=== PATIENT | female | born 1930 | race Caucasian/White ===

== ENCOUNTER 2019-06-02 14:25 | Inpatient (IN) | payer MEDICARE ==
[~2019-06-02] VITALS: Ht 154.9 cm; Wt 42.6 kg
[2019-06-02] MEDS ORDERED: LIPITOR20 MG PO (14:52)
[2019-06-02] MEDS ORDERED: LASIX ORAL S10 MG/ML PO (14:53)
[2019-06-02] MEDS ORDERED: MULTI VITAMINS1 TAB PO (14:54)
[2019-06-02] MEDS ORDERED: SYNTHROID0.075 MG/T (14:54)
[2019-06-02] MEDS ORDERED: SYNTHROID0.05 MG/TA PO (15:32)
[2019-06-02 15:42] LABS: BASO % 0.3 % (0.0-2.0); GRAN # 9.5 (1.4-6.5); GRAN % 85.7 % (42.2-75.2); HEMOGLOBIN 10.5 g/dl (12.5-16.0); LYMPH # 0.7 (1.2-3.4); LYMPH % 6.6 % (20.0-51.0); MEAN CELL VOLUME 97 fl (80.0-100.0); MEAN CORPUSCULAR HEMOGLOBIN 31 pg (27.0-31.0); MEAN CORPUSCULAR HGB CONC 32 g/dl (33.0-37.0); MEAN PLATELET VOLUME 9.6 fl (7.4-10.4); MONO # 0.8 (0.1-0.6); MONO % 6.7 % (1.7-9.3); PLATELET COUNT 207 K/mm3 (130-400); RED BLOOD COUNT 3.44 M/mm3 (4.10-5.30); REDCELL DISTRIBUTION WIDTH-CV 14.3 % (11.5-14.5)
[2019-06-02 15:43] LABS: ALBUMIN 3.7 gm/dL (3.5-5.0); BILIRUBIN,TOTAL 0.6 mg/dL (0.0-1.0); CALCIUM 8.9 mg/dL (8.4-10.2); CREATININE, serum 0.65 (0.52-1.25); HEMATOCRIT 33.2 % (37.0-47.0); POTASSIUM 4.1 mmol/L (3.4-5.0); TOTAL PROTEIN 6.9 gm/dL (6.4-8.2)
[2019-06-02 15:46] LABS: PROTHROMBIN TIME 11.8 SECONDS (9.7-12.8)
[2019-06-02 15:49] LABS: PRE ALBUMIN 15.2 mg/dL (17.6-36.0)
[2019-06-02] MEDS ORDERED: LIPITOR 40MG TA40 MG PO (16:08)
[2019-06-02] MEDS ORDERED: ZESTRIL 20MG TA20 MG PO (16:09)
[2019-06-02 16:16] LABS: COLLECTION METHOD CATHETER
[2019-06-02 16:22] LABS: PH 6 (5-8); SQUAMOUS EPITHELIAL None Seen /hpf; URINE APPEARANCE Clear; URINE BACTERIA None Seen /hpf; URINE BILIRUBIN Negative (NEGATIVE); URINE BLOOD Negative (NEGATIVE); URINE COLOR Yellow; URINE GLUCOSE Negative (NEGATIVE); URINE KETONE Negative (NEGATIVE); URINE LEUKOCYTE ESTERASE Negative (NEGATIVE); URINE NITRATE Negative (NEGATIVE); URINE PROTEIN(semi-quant) 1+ (NEGATIVE)
--- NOTE | 2019-06-02 18:00 | NUR ---
Patient up from ER alert and oriented x 3. Assessment complete. Daughter at bedside. Hospitalist in to see patient. Obed pa and SCD to RLE. States pain to left hip 10/25, medications given per orders. Daughter and patient oriented to room. Initial and 5 page complete. Denies further needs at this time. Will report off to shift superintendent.
[2019-06-02 19:25] VITALS: BP 175/53; BP 18125/5; PULSE 67; PULSE 82; TEMP 97.3; TEMP 99.3
[2019-06-02 19:49] VITALS: BP 147/62; PULSE 67; TEMP 98.5
--- NOTE | 2019-06-02 20:00 | NUR ---
Report received. Assumed care for steward/stewardess night. Assessment complete. VS stable. A&Ox3-drowsy. Denies pain/shortness of breath/nausea. IV to Left wrist #22g-fluids infusing without difficulty. Jefferson cath draining clear yellow urine. DULCE MARIA/SCD to right lower extremity. Plan of care discussed for bedrest, NPO status and pain control. Verbalizes understanding. Call light in reach. Encouraged to call for needs. Will monitor.
[2019-06-03] VITALS (11 sets, daily range): BP systolic 127–157; BP diastolic 45–106; PULSE 58–70; TEMP 98–98.4
--- NOTE | 2019-06-03 04:00 | NUR ---
Rested off and on this shift. Pain adequately controlled with oral pain meds. Ambulated in hallway for approx 100feet this shift. Tolerated well. Denies nausea/shortness of breath. SCDs/Ally bilat. Has rotated ice off an on this shift. Call light in reach. WIll monitor.
--- NOTE | 2019-06-03 05:10 | NUR ---
C/O pain to left hip-rates 8/10 to left hip-described as constant ache/intermittent sharp. Morphine 2mg given IV per dr order due to NPO status. New consent form signed and on chart. Denies questions or concerns. Denies nasuea/shortness of breath. Call light in reach. Will monitor.
[2019-06-03 08:03] LABS: BASO % 0.4 % (0.0-2.0); EOS % 0.1 % (0-4.0); GRAN # 6.8 (1.4-6.5); GRAN % 75.2 % (42.2-75.2); LYMPH # 1.3 (1.2-3.4); LYMPH % 14.2 % (20.0-51.0); MEAN CELL VOLUME 97 fl (80.0-100.0); MEAN CORPUSCULAR HGB CONC 32 g/dl (33.0-37.0); MEAN PLATELET VOLUME 10.1 fl (7.4-10.4); MONO # 0.9 (0.1-0.6); MONO % 9.7 % (1.7-9.3); PLATELET COUNT 200 K/mm3 (130-400); RED BLOOD COUNT 2.99 M/mm3 (4.10-5.30); REDCELL DISTRIBUTION WIDTH-CV 14.4 % (11.5-14.5)
[2019-06-03 08:05] LABS: HEMOGLOBIN 9.2 g/dl (12.5-16.0); MEAN CORPUSCULAR HEMOGLOBIN 31 pg (27.0-31.0)
[2019-06-03 08:33] LABS: CALCIUM 8.3 mg/dL (8.4-10.2); CREATININE, serum 0.68 (0.52-1.25); POTASSIUM 3.7 mmol/L (3.4-5.0)
--- NOTE | 2019-06-03 10:19 | NUR ---
ARIANA met with the patient and her daughter, Nay Hernandez (ph#[phone]), to discuss discharge plan. The patient lives in [place] with her daughter (Nay) and son-in-law. She reports independence with ADLs and has two canes, two walkers, and a wheelchair available if needed. The patient's PCP is Dr. Solange Van and she receives her medications at the [facility] in [place]. She reports no difficulties obtaining her meds. The patient does not have advanced directives in EMR, but her her daughter states that she does have them completed and that they are somewhere at home. Nay states that she is that patient's DPOA-HC. The patient had a left hip fracture. ARIANA discussed post-acute rehab. The patient and her daughter were agreeable to this. ARIANA presented and explained the Patient Choice Form to the patient's daughter and provided her with Medicare.gov's list of nursing homes in the [place] area. The patient and her daughter chose 1) [facility] 2) [facility]. Patient Choice Form signed by the patient's daughter and she was provided a copy. ARIANA consulted Neelam with [facility]. ARIANA contacted and faxed a referral to Ibeth at [facility]. Ibeth, at [facility], reports that if able to accept, that they would not be able to take on the weekend. SW awaiting their screens and will continue to follow.
--- NOTE | 2019-06-03 15:00 | NUR ---
Patient up from OR, Alert and oriented. Post op VSS. Daughter at bedside. Denies further needs at this time.
--- NOTE | 2019-06-03 17:45 | NUR ---
Contacted Dr. Ji, patient having low urine out put and SBP in 100's. Fluid bolus started per orders, will continue to monitor BP.
--- NOTE | 2019-06-03 18:29 | NUR ---
Patient has done well since up from OR. Fluid bolus infusing per orders. Denies pain at this time. LUE in sling. Left hip sites with gauze. Denies further needs at this time. Will report off to shift manager.
--- NOTE | 2019-06-03 20:00 | NUR ---
Report received. Assumed care for salesperson household appliances. Assessment complete. A&Ox3-some confused conversation but re-orients on own. IV to right forearm pulled out-cath intact. Restarted in left [id number] attempt. Blood pressure taken manually as monitor reading high-VS are WNL. Jefferson cath driaining clear yellow urine. Output has increased since 1800 fluid bolus. Total of 125 out in two hours. Denies pain/nausea/shortness of breath. Dressings x3 to left hip-gauze/tegaderm. Top dressing totally saturated with bright red blood. Ortho migration agent notified with new orders to re-enforce with 4x4s/ABDs/foam tape. Completed and tolerated well. Will monitor drainage. Denies questions or concerns. Call light in reach. Bed alarm on. Will monitor.
[2019-06-04] VITALS (7 sets, daily range): BP systolic 134–167; BP diastolic 47–68; PULSE 61–69; TEMP 97.4–98.1
--- NOTE | 2019-06-04 02:00 | NUR ---
Repositioned at this time with pillow support. A&Ox3-very agitated. Urine output has been adequate since-but on the low side of 50mls/hr. Has continued to take sling off left arm stating she cant take having anything on that long and around her arm. States she feels as if she is restrained. Explained importance of sling but adamantly refuses to reapply. Complaining of nausea as well as pain. Dry heaved several times, has not tolerated any PO except some water. Refused any type of PO intake thus far. Zofran 4mg given IV per dr order followed by Morphine 2mg for pain to left hip/left shoulder. States left hip pain is mild compared to left shoulder pain. Rating pain 8/10 described as a constant ache/throb. Seems slightly agitated. States she does not want to be here any longer and is ready to go home. States she will not go to therapy as she had to do that before and would rather . After discussing she understands the importance but states she still will just leave today. States she is much more comfortable than she was and will try to rest-"lack of sleep has me in a bad way." Will continue to monitor.
--- NOTE | 2019-06-04 04:00 | NUR ---
Notified by PCT of elevated blood pressure. Taken manually by this nurse-148/68. Has been resting better since Morphine/zofran combo. Output has been 250mls in two hours. Has tolerated some clear liquids. Still refusing to wear sling or apply ice to hip. Repositioned with pillows. Denies nausea/pain/shortness of breath. SCDs/TEDs bilat. Call light in reach. Bed alram on. Will monitor.
--- NOTE | 2019-06-04 05:26 | NUR ---
Called to room stating she wants to leave and does not want to stay here any longer. Is A&Ox3-will have a brief moment of confusion but re-orients self and laughs at her mistake. Rating pain 4/10 to shoulder/hip-Hydrocodone one tab given per dr order. Denies nausea/shortness of breath. Discussed sling again and allowed this nurse to re-apply. Tolerated some clear liquids-refused PO for most of shift. Denies questions or concerns. Call light in reach/bed alarm on. Will monitor.
[2019-06-04 07:57] LABS: HEMATOCRIT 26.8 % (37.0-47.0); HEMOGLOBIN 8.4 g/dl (12.5-16.0)
--- NOTE | 2019-06-04 11:01 | NUR ---
Visited, listened and provided spiritual care for the patient.
--- NOTE | 2019-06-04 18:47 | NUR ---
Patient has done well throughout the day. Minimal needs. Pain medications given x2 today per orders. Encouraged patient to increase use of left upper extremity. Occassionally confused. States she cannot power saw operator her left arm, later will use arm. Has been up in recliner the majority of the day. Jefferson catheter discontiued today and patient voiding without difficulties. Has been up to comode with x1 assist. Denies further needs at this time. Daughter at bedside this afternoon. Reported off to material handler 1st shift.
[2019-06-05 04:58] VITALS: BP 130/49; PULSE 61; TEMP 97.9
--- NOTE | 2019-06-05 05:49 | NUR ---
PT MEDICATED TWICE FOR HIP PAIN. PT TRANSFERS POORLY. PT NOT VERY MOTIVATED TO MOVE. NEW ICE APPLIED.
[2019-06-05 07:08] LABS: BASO % 0.1 % (0.0-2.0); GRAN # 6.6 (1.4-6.5); GRAN % 80.2 % (42.2-75.2); LYMPH % 11.8 % (20.0-51.0); MEAN CELL VOLUME 97 fl (80.0-100.0); MEAN CORPUSCULAR HGB CONC 32 g/dl (33.0-37.0); MEAN PLATELET VOLUME 9.7 fl (7.4-10.4); MONO # 0.6 (0.1-0.6); MONO % 7.4 % (1.7-9.3); PLATELET COUNT 193 K/mm3 (130-400); RED BLOOD COUNT 2.61 M/mm3 (4.10-5.30); REDCELL DISTRIBUTION WIDTH-CV 14.6 % (11.5-14.5)
[2019-06-05 07:14] LABS: CALCIUM 8.5 mg/dL (8.4-10.2); CREATININE, serum 0.68 (0.52-1.25); POTASSIUM 3.6 mmol/L (3.4-5.0)
[2019-06-05 07:59] LABS: HEMATOCRIT 25.3 % (37.0-47.0); HEMOGLOBIN 8.1 g/dl (12.5-16.0); MEAN CORPUSCULAR HEMOGLOBIN 31 pg (27.0-31.0)
[2019-06-05 09:29] VITALS: BP 157/50; PULSE 66; TEMP 97.9
--- NOTE | 2019-06-05 10:18 | NUR ---
Patient resting in bed. She worked with therapy and did fairly well. She tolerated her breakfast. Reports not being a big eater. Ortho rounded. Left hip drg CDI. Complaints of L.shoudler pain. Teds & scds. Int. Will monitor.
[2019-06-05 11:21] VITALS: BP 166/72; PULSE 78; TEMP 98.2
[2019-06-05 15:54] VITALS: BP 155/49; PULSE 66; TEMP 98.8
--- NOTE | 2019-06-05 17:44 | NUR ---
Patient resting in bed. Ayan assisted her with a shower this afternoon. Her family also visited. Carol for pain managment. She continues to have more complaints of shoulder pain than hip pain, that is worse with movement. She has been continent of urine, using bedside commode with assist. Int. Teds off at this time after shower. Patient has tolerated meals. Alerternative meals offered. She is wanting to nap. Will monitor
[2019-06-05 21:06] VITALS: BP 125/49; PULSE 62; TEMP 98.2
[2019-06-06 04:49] VITALS: BP 125/42; PULSE 62; TEMP 98.8
--- NOTE | 2019-06-06 05:28 | NUR ---
Pain medication given per orders. Requires one assist to transfer to the commode for toileting. States significant pain to left hip. Dressing has minimal amount of drainage to site. Pain medication effective. Patient has slept well throughout the night. Denies any further needs. Will continue to monitor.
[2019-06-06 07:35] LABS: BASO % 0.2 % (0.0-2.0); CALCIUM 8.1 mg/dL (8.4-10.2); CREATININE, serum 0.72 (0.52-1.25); GRAN # 7.8 (1.4-6.5); GRAN % 83.7 % (42.2-75.2); LYMPH # 0.8 (1.2-3.4); LYMPH % 8.4 % (20.0-51.0); MEAN CELL VOLUME 97 fl (80.0-100.0); MEAN CORPUSCULAR HGB CONC 32 g/dl (33.0-37.0); MEAN PLATELET VOLUME 9.8 fl (7.4-10.4); MONO # 0.7 (0.1-0.6); MONO % 7.2 % (1.7-9.3); PLATELET COUNT 191 K/mm3 (130-400); POTASSIUM 3.7 mmol/L (3.4-5.0); RED BLOOD COUNT 2.37 M/mm3 (4.10-5.30); REDCELL DISTRIBUTION WIDTH-CV 14.7 % (11.5-14.5)
[2019-06-06 07:37] LABS: HEMATOCRIT 22.9 % (37.0-47.0); HEMOGLOBIN 7.3 g/dl (12.5-16.0); MEAN CORPUSCULAR HEMOGLOBIN 31 pg (27.0-31.0)
--- NOTE | 2019-06-06 08:00 | NUR ---
Patient in bed resting. Alert and oriented x 3. Assessment complete. Aquacell dressing to left hip with minimal drainage present. Tedhose and SCDs to BLE. Assisted patient to bedside comode x1 assist. Denies further needs at this time.
[2019-06-06 08:16] VITALS: BP 136/42; PULSE 71; TEMP 98.6
[2019-06-06 11:32] VITALS: BP 145/45; PULSE 74; TEMP 99.4
--- NOTE | 2019-06-06 16:11 | NUR ---
Out And Out Cigar Maker Hand was notified by BERTHA Rodríguez that patient is cleared for discharge. ARIANA contacted Jana, [facility] Director and spoke with Hospitalist who advised [facility] does not have bed availability at this time. ARIANA contacted Ibeth at [facility] who advised she would have to submit for prior authorization as patient has [employer]. Later in the afternoon, Ibeth contacted ARIANA to inform her that [facility] is not an in network provider. ARIANA contacted Nay (ph#[phone]), patient's daughter to provide update. Nay expressed frustration and gave ARIANA permission to send referrals to the three SNFs in [place]. ARIANA contacted [facility], [email or web address], and [facility] then faxed [facility]errals. ARIANA advised each facility that patient has [employer]. SW provided update to patient. Patient's daughter also inquired about pricing for a walker with a seat and brakes. ARIANA contacted [facility] then provided Nay with pricing. ARIANA advised Nay that she could purchase item at her preferred DME provider. SW to continue to follow.
[2019-06-06 16:25] VITALS: BP 165/63; PULSE 82; TEMP 99
--- NOTE | 2019-06-06 18:30 | NUR ---
Patient has done well throughout the day, minimal needs. States pain is better today. Has been up ambulatig to restroom with 1 assist and walker, steady gait. Daughter at bedside this afternoon. Denies further needs at this time. Will report off to warp tier.
[2019-06-06 20:25] VITALS: BP 123/93; PULSE 78; TEMP 100
[2019-06-06 23:31] VITALS: BP 159/54; PULSE 73; TEMP 99.8
[2019-06-07 04:10] VITALS: BP 136/50; PULSE 66; TEMP 99.1
--- NOTE | 2019-06-07 06:32 | NUR ---
Patient has rested well throughout the night. PRN pain medication given at HS for pain to left hip. Patient calls to transfer to toilet. Denies any further needs. Will continue to monitor.
--- NOTE | 2019-06-07 08:00 | NUR ---
Patient in bed resting. alert and oriented x 3. Assessment complete. Patient has been up ambulating to restroom with walker and stand by assist. Denies pain at this time. Denies further needs at this time. Will continue to monitior.
[2019-06-07 08:11] LABS: BASO % 0.2 % (0.0-2.0); EOS % 0.1 % (0-4.0); LYMPH # 1.1 (1.2-3.4); LYMPH % 12.5 % (20.0-51.0); MEAN CELL VOLUME 97 fl (80.0-100.0); MEAN CORPUSCULAR HGB CONC 32 g/dl (33.0-37.0); MEAN PLATELET VOLUME 9.7 fl (7.4-10.4); MONO # 0.6 (0.1-0.6); MONO % 6.5 % (1.7-9.3); PLATELET COUNT 211 K/mm3 (130-400); RED BLOOD COUNT 2.66 M/mm3 (4.10-5.30); REDCELL DISTRIBUTION WIDTH-CV 14.7 % (11.5-14.5)
[2019-06-07 08:13] VITALS: BP 151/55; PULSE 65; TEMP 98.5
[2019-06-07 08:15] LABS: HEMATOCRIT 25.9 % (37.0-47.0); HEMOGLOBIN 8.2 g/dl (12.5-16.0); MEAN CORPUSCULAR HEMOGLOBIN 31 pg (27.0-31.0)
[2019-06-07 08:18] LABS: CALCIUM 8.6 mg/dL (8.4-10.2); CREATININE, serum 0.65 (0.52-1.25); POTASSIUM 3.3 mmol/L (3.4-5.0)
--- NOTE | 2019-06-07 11:23 | NUR ---
Railroad Car Truck Builder was contacted by Tracy at [email or web address] who advised patient's daughter, Nay contacted them about placement. SW faxed referral and copy of patient's [facility] care to [facility]. Tracy from [facility] asked for ICD-10 codes for patient fractures. ARIANA collaborated with GINA Meyer then provided the codes to Tracy. ARIANA received a message from the previous evening that advised Winnie from [facility] visited with patient. SW was contacted by Sybil at [facility] who advised she had a reference number from [facility] but was waiting on final authorization. Sybil advised she spoke with Nay about this. ARIANA spoke with Jana [facility] Director who advised she will start authorization process as a bed may be available tomorrow. ARIANA contacted [facility] who states [facility] is still patient's first preference. ARIANA contacted BERTHA Rodríguez to provide update. ARIANA to continue to follow.
--- NOTE | 2019-06-07 11:33 | NUR ---
Coat Cutter contacted GINA Bedoya at [facility] and left a message. (ph#[phone]).
[2019-06-07 12:18] VITALS: BP 139/41; PULSE 69; TEMP 98.3
[2019-06-07] MEDS ORDERED: ASPIRIN 32325 MG/TA1 PO (14:03)
[2019-06-07] MEDS ORDERED: NORCO 325 MG-51 TAB PO (14:04)
[2019-06-07] MEDS ORDERED: TYLENOL 325MG325 MG PO (14:04)
[2019-06-07] MEDS ORDERED: OSCAL 500 TAB500 MG PO (14:05)
[2019-06-07] MEDS ORDERED: VITAMIN C500 MG PO (14:07)
--- NOTE | 2019-06-07 14:20 | NUR ---
Patient doing well this AM. Has been up ambulating to restroom with walker. Aquacell to left hip with minimal drainage. Pedal pulses intact. SCDs and Obed hose to BLE. Denies further needs at this time.
[2019-06-07 14:41] VITALS: BP 139/41; PULSE 69; TEMP 98.3
--- NOTE | 2019-06-07 15:26 | NUR ---
The patient to to discharge this day, 06/07 to [facility] for a fdc stay. The patient will be transported at 1530. ARIANA informed the team and the patient's family, all were in agreeance. ARIANA faxed discharge orders to [facility]. ARIANA informed and thanked all other referrals.ARIANA presented the IM form to the patient and the patient's grandson and grandson's . The patient and family understood. Patient had grandson sign the form. A copy was provided to the family and original was placed in the chart. There are no additional needs at this time.
--- NOTE | 2019-06-07 15:48 | NUR ---
Patient transfering to [facility]. Grand son at bedside. Assisted patient to wheelchair. Deneis pain or further needs at this time.
== END 2019-06-07 15:52 | DRG 480 ==
LOC: COL.ER 14:25 → SURG 15:12 → EDBEDREQ 16:51 → SURG 06-07 15:52
PROVIDERS: Emergency Medicine; Family Medicine; Nurse Practitioner Family; Physician Assistant; ADMIT Orthopaedic Surgery
PROC: BW1JYZZ Fluoroscopy of Upper Extremity using Other Contrast (ICD-10-PCS; 2019-06-03)
PROC: 0QS704Z Reposition Left Upper Femur with Internal Fixation Device, Open Approach (ICD-10-PCS; principal; 2019-06-03 12:00)
PROC: 0QS706Z Reposition Left Upper Femur with Intramedullary Internal Fixation Device, Open Approach (ICD-10-PCS; 2019-06-03 12:00)
DX: S72.142A Displaced intertrochanteric fracture of left femur, initial encounter for closed fracture (principal); J96.01 Acute respiratory failure with hypoxia; S42.202A Unspecified fracture of upper end of left humerus, initial encounter for closed fracture; I13.0 Hypertensive heart and chronic kidney disease with heart failure and stage 1 through stage 4 chronic kidney disease, or unspecified chronic kidney disease; E44.0 Moderate protein-calorie malnutrition; Z68.1 Body mass index [BMI] 19.9 or less, adult; E89.0 Postprocedural hypothyroidism; I50.9 Heart failure, unspecified; K21.9 Gastro-esophageal reflux disease without esophagitis; I08.0 Rheumatic disorders of both mitral and aortic valves; E87.6 Hypokalemia; E78.5 Hyperlipidemia, unspecified; N18.9 Chronic kidney disease, unspecified; H35.30 Unspecified macular degeneration; F17.210 Nicotine dependence, cigarettes, uncomplicated; W18.30XA Fall on same level, unspecified, initial encounter; Y92.008 Other place in unspecified non-institutional (private) residence as the place of occurrence of the external cause; D64.9 Anemia, unspecified; D72.829 Elevated white blood cell count, unspecified; Z90.710 Acquired absence of both cervix and uterus
CPT/HCPCS: 99222-AI; 99232-AI; 99239; A9284; C1713; J0360; J0690; J1100; J2250; J2270; J2405; J2704; J3010; J3475; J7040; J7120